=== PATIENT | female | born 2000 | race Caucasian/White ===

== ENCOUNTER 2019-08-27 15:14 | Emergency (ER) | payer OTHER, SELFPAY ==
[2019-08-27 15:16] VITALS: BP 124/98; PULSE 95; RESP 15; TEMP 36; O2SAT 100; BMI 20.2
--- NOTE | 2019-08-27 15:52 | RAD_ITS ---
STUDY: X-RAY CHEST REASON FOR EXAM: Female, 18 years old. Palpitations exacerbated by exertion and shortness of breath TECHNIQUE: COMPARISON: None. FINDINGS: The lungs are clear and expanded. There is no demonstrated pleural abnormality. Normal size heart. Normal mediastinum and edmundo. Normal visualized pulmonary arteries. Normal visualized aortic arch and descending thoracic aorta. Dorsal spine demonstrates mild scoliosis deformity.. Normal visualized ribs, clavicles, and shoulders. There is no demonstrated abnormality of the visualized soft tissue structures of the upper abdomen. RAD/Chest 1 View (Portable) IMPRESSION: No acute cardiopulmonary pathology Electronically Signed: Tanner Nance MD at 16:12 EDT , Service support ,
--- NOTE | 2019-08-27 15:52 | EKG12_ITS ---
Test Reason : PALPS Blood Pressure : / mmHG Vent. Rate : 086 BPM Atrial Rate : 086 BPM P-R Int : 148 ms QRS Dur : 086 ms QT Int : 358 ms P-R-T Axes : 060 076 054 degrees QTc Int : 428 ms Sinus rhythm with marked sinus arrhythmia Otherwise normal ECG Confirmed by HAWK LIND, RICK ([id number]), editorial assistant ADAIR SANDY ([id number]) on 08/31/2019 3:31:55 PM Referred By: DAMIAN Confirmed By:RICK ARECHIGA MD
--- NOTE | 2019-08-27 16:06 | ED.VISSUMM ---
- ER Visit Summary Date of Service: 08/27/19 Chief Complaint: Elevated heart rate History of Present Illness: The patient is a 18 F who presents with an elevated heart rate. Symptoms have been intermittent over the past month. They last for about 5 minutes. Worse with walking. She feels short of breath and chest tightness. That dose of breath has started over the last 3 to 4 days. Patient never had issues like this in the past. She takes control but no other medication. She does not smoke or use drugs. She does have a family history of stroke and ID. Her mother had a stroke at the age of 38. They never found out why. She denies any personal history of stroke, ACS, or venous thromboembolism. Denies any recent travel or hospitalization. Physical Examination: Afebrile and vital signs are unremarkable. Heart is regular rate and rhythm. No murmurs. Lungs are clear. Extremities nontender with no edema. Skin appears normal. Cranial nerves grossly intact. Moves all extremities. Test Results: EKG showed sinus rhythm at a rate of 86. Chest x-ray pending. CBC, BMP, TSH, troponin, d-dimer, and hCG pending. Emergency Department Course and Treatment: Patient presents with tachycardia and palpitations. She has a record of her tachycardia on her smart watch. Her heart rate has been as high as 170. She is in sinus rhythm here. She does not have murmurs or other significant findings on exam. She does have a family history of stroke and ID. Work-up was pursued. She was monitored. Chest x-ray negative. No further symptoms on reevaluation. All of her lab work is pending. Oncoming doctor will check the results. CTA chest if indicated. If work-up is negative, patient is doing well, and has no events on the monitor, she will be discharged for outpatient follow-up with cardiology. Return right away for any new or worsening issues. She was given precautions to avoid exertional activities, sports until she is cleared by cardiology. Treatment Plan: As above Disposition: Pending work-up Impression: 1. Palpitations This note was generated with [employer]ist[employer] software. It may contain incorrect words, spelling, and punctuation that were not noted in review of the chart prior to signing ED Disposition - Plan for ED Patient: Referrals: [facility] Doctor,Out of [Primary Care Provider] -
--- NOTE | 2019-08-27 16:32 | ED.DEP ---
ED Disposition - Plan for ED Patient: Instructions: Palpitations Referrals: Gregg Calabrese MD [STAFF PHYSICIAN] -
[2019-08-27 16:42] LABS: Absolute Lymphocyte Count 2.72 X10^3/uL (0.83-4.51); Absolute Neutrophil Count 3.7 X10^3/uL (2.0-7.7); Basophil# 0.04 X10^3/uL; Basophil% 0.6 % (0-1); Eosinophil# 0.12 X10^3/uL; Eosinophils% 1.7 % (0-5); Hematocrit 44.2 % (37-47); Hemoglobin 14.1 g/dL (12.0-15.0); Lymphocyte # 2.72 X10^3/ul (4.0); Lymphocyte % 37.8 % (19-41); Mean Corp Hgb Conc 31.9 g/dL (32-36); Mean Corpuscular Hgb 26.7 pg (27.0-32.0); Mean Corpuscular Volume 83.7 fL (81-99); Mean Platelet Vol. 9.3 fl (6.2-12.0); Monocyte# 0.59 X10^3/uL; Monocyte% 8.2 % (0-10); NRBC Flagged by Analyzer 0 % (0-5); Neutrophil # 3.71 X10^3/uL (2.7-7.7); Neutrophil % 51.4 % (47-70); Platelet Count 276 K/mm3 (150-450); RBC Distribution Width CV 12.3 % (11.6-14.6); RBC Distribution Width SD 37.5 fl (35.1-43.9); Red Blood Count 5.28 M/mm3 (4.2-5.4); White Blood Count 7.2 K/mm3 (4.4-11.0)
[2019-08-27 16:52] LABS: Anion Gap 4 (5-15); BUN 11 mg/dL (7-18); BUN/Creat Ratio 14.7 RATIO (10-20); Calcium,Total 8.8 mg/dL (8.5-10.1); Chloride 108 mmol/L (98-107); Creatinine, Serum 0.75 mg/dL (0.55-1.02); EST Glomerular Filtration Rate 105 mL/min (>60); Est Glom Filt Rate - Afr Amer 127 mL/min (>60); Estimated Creatinine Clearance 110.52 ml/min; Glucose 77 mg/dL (74-106); Potassium 3.9 mmol/L (3.5-5.1); Sodium Level 140 mmol/L (136-145); Thyroid Stim Hormone (TSH) 0.77 uIU/mL (0.358-3.74)
[2019-08-27 16:59] LABS: Internal QC Validated? YES +Cl - CLEAR BKGD; Pregnancy, Serum, hCG Quali. NEGATIVE Negative
[2019-08-27 17:20] LABS: D-Dimer Quantitative (DVT/PE) 0.28 FEU/ug/m (0.27-0.49)
[2019-08-27 18:00] VITALS: BP 118/81; PULSE 85; RESP 23; O2SAT 97
[2019-08-27 18:41] VITALS: BP 112/81; PULSE 81; RESP 16; O2SAT 98
== END 2019-08-27 18:42 | disposition home or self-care (01) ==
LOC: ED 16:09
PROVIDERS: Emergency Provider Emergency Medicine
DX: I47.1 Supraventricular tachycardia (principal); R51 Headache; Z82.3 Family history of stroke; Z82.49 Family history of ischemic heart disease and other diseases of the circulatory system
CPT/HCPCS: 71045; 80048; 84443; 84484; 84703; 85025; 85379; 93005; 99284; A4216